=== PATIENT | female | born 1970 | race Caucasian/White ===

== ENCOUNTER 2020-01-02 09:17 | Emergency (ER) | payer SELFPAY | END 2020-01-02 09:20 | disposition left against medical advice (07) | LOC: ER 04-11 14:39 | DX: Z53.21 Procedure and treatment not carried out due to patient leaving prior to being seen by health care provider (principal) | CPT/HCPCS: 99281 ==

== ENCOUNTER 2024-10-26 13:34 | Emergency (ER) | payer SELFPAY ==
[2024-10-26 13:42] VITALS: BP 121/80; PULSE 104; RESP 18; TEMP 37; O2SAT 94; BMI 36.6
--- NOTE | 2024-10-26 13:42 | W.ED.ANIMALB ---
HPI - Animal Bite General: Chief Complaint: Animal Bite Stated Complaint: Dog Bite Time Seen by Provider: 10/26/24 13:40 Source: patient Mode of arrival: ambulatory Limitations: no limitations History of Present Illness: 54-year-old female presents to the ER for a dog bite. 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 Patient is unaware of her last tetanus shot. MD complaint: animal bite Onset (ago): hour(s) Animal: dog Description of animal: immunizations UTD and appeared well Mechanism: bite Location: other Location - Extremities: Left: hand (Distal phalanx L thumb) Pain description: constant Severity scale (1-10): 9 Context: other (grooming dog) Associated symptoms: Reports no associated symptoms; Deny chills, fever(s) or headache(s) Related Data Previous Rx's ?Medication ?Instructions ?Recorded hydroxyzine HCl 50 mg tablet 50 mg PO TID PRN anxiety #30 tabs 05/13/24 amoxicillin 875 mg-potassium 1 tab PO BID #14 tabs 10/26/24 clavulanate 125 mg tablet Allergies Allergy/AdvReac Type Severity Reaction Status Date / Time No Known Allergies Allergy Verified 05/13/24 11:36 Review of Systems Const: Denies: fever(s), chills or body aches Card: Denies: chest pain or palpitations Resp: Denies: dyspnea or productive cough GI: Denies: abdominal pain, nausea or vomiting Musc: Reports: extremity pain (L thumb); Denies: neck pain, back pain, joint swelling, joint redness or joint warmth Skin/Breast: Reports: other (laceration/dog bite distal L thumb); Denies: rash, pruritus, skin pain, skin swelling or new lesions Neuro: Denies: headache(s), numbness in extremities or weakness in extremities Physical Exam Const: COMMON NORMALS: no acute distress, average body habitus, patient oriented x3, no limitations, alert and well nourished GENERAL APPEARANCE: cooperative ORIENTATION/CONSCIOUSNESS: Yes awake, Yes oriented to person, Yes oriented to place and Yes oriented to time Chest: COMMONS NORMALS: normal inspection of the chest Resp: COMMON NORMALS: normal respiratory effort and clear to auscultation bilaterally EFFORT & INSPECTION: Yes able to speak in complete sentences AUSCULTATION: clear to auscultation bilaterally Cardio: COMMON NORMALS: regular rate and regular rhythm RATE: regular rate RHYTHM: regular rhythm Extremity: GENERAL: Yes normal exam except as noted LEFT UPPER EXTREMITY: Yes hand & digits (dog bite to distal L thumb; no nail damage) Left hand and digits: Yes ROM (normal) and Yes neurovascular exam (normal) Neuro: COMMON NORMALS: patient oriented x3, moves all extremities, no focal motor deficits and no sensory deficits noted SENSORIUM/ORIENTATION: Yes alert, Yes oriented to person, Yes oriented to place and Yes oriented to time Skin: NARRATIVE SKIN EXAM: see above TRAUMA: laceration (L. thumb laceration at distal phalanx ) linear, actively bleeding, contaminated and sensation intact Procedures Laceration Laceration 1: Site: hand (L thumb) Side (If applicable): left Size (cm): 1.25 Description: flap Depth: simple, single layer Local Anesthetic: lidocaine 2% (digital block) Amount of anesthesia used (mL): 3.0 Pre-repair: wound explored and irrigated extensively Skin layer closed with: nylon Size (cm): 4-0 Number of sutures: 3 Technique: simple, interrupted Course Vital Signs: Vital signs: Vital Signs Temperature 98.6 F 10/26/24 13:42 Pulse Rate 104 H 10/26/24 13:42 Respiratory Rate 18 10/26/24 13:42 Blood Pressure 121/80 10/26/24 13:42 Pulse Oximetry 94 10/26/24 13:42 Oxygen Delivery Me thod Room Air 10/26/24 13:42 MDM - Animal Bite Medical Decision Making XR negative. Tetanus updated. Wound copiously irrigated and repaired as documented. She will be placed on Augmentin. Infection precautions/wound care instructions discussed. Differential Diagnosis Likely bite by animal Medical Records I reviewed the patient's medical records. Lab Data Radiology Impressions Finger X-Ray 10/26/24 14:03 IMPRESSION: No acute abnormality. All radiology interpretation(s) finalized by discharge Discharge Plan Discharge Patient Disposition: Home Clinical Impression: Dog bite Qualifiers: Encounter type: initial encounter Qualified Code(s): W54.0XXA - Bitten by dog, initial encounter Condition: Stable Prescriptions: New amoxicillin-pot clavulanate 875-125 mg tablet 1 tab PO BID Qty: 14 0RF No Action hydroxyzine HCl 50 mg tablet 50 mg PO TID PRN (Reason: anxiety) Qty: 30 0RF Discharge Orders: Discharge ED (Routine); Ordered 10/26/24 Ordered By: Kathy Martinez Patient Instructions: Animal Bite (ED) Activity Restrictions/Additional Instructions: Keep wound/laceration clean with warm soap and water twice daily. Monitor for signs of infection such as redness, swelling, increased pain, or drainage. Please seek medical re-evaluation if these occur. If you received sutures today these will need to be removed (unless you were told by the provider that they are absorbable). The provider should have discussed with you the length of time until removal-5 TO 7 DAYS. Print Language: Vietnamese Coding Level of Care Code ED [facility] [employer] [facility]
--- NOTE | 2024-10-26 14:03 | XR_ITS ---
WS: [id number] XR finger LT min 2V [id number] REASON FOR EXAM: thumb; dog bite FINDINGS: No acute fracture identified. Joint spaces intact and well preserved. No radiopaque foreign body. XR/XR finger LT min 2V [id number] IMPRESSION: No acute abnormality.
[2024-10-26] MEDS: tetanus-dipt-pertussis 0.5 mL SDV IM (14:07)
[2024-10-26] MEDS: lidocaine 2% INJ 20 mL INJECTION (15:04)
== END 2024-10-26 15:31 | disposition home or self-care (01) ==
PROVIDERS: Emergency Provider Physician Assistant
DX: S61.052A Open bite of left thumb without damage to nail, initial encounter (principal); W54.0XXA Bitten by dog, initial encounter; Z23 Encounter for immunization
CPT/HCPCS: 12001; 73140; 90471; 90715; 99283